=== PATIENT | male | born 2000 | race Caucasian/White ===

== ENCOUNTER 2024-06-19 20:11 | Emergency (ER) | payer SELFPAY | END 2024-06-19 20:50 | disposition home or self-care (01) | LOC: MW.ED 20:11 | DX: R11.11 Vomiting without nausea (principal); F17.210 Nicotine dependence, cigarettes, uncomplicated; Z79.2 Long term (current) use of antibiotics | CPT/HCPCS: 99283 ==

== ENCOUNTER 2024-08-02 20:24 | Emergency (ER) | payer SELFPAY ==
[2024-08-02] MEDS: diphenhydrAMINE 50 MG Cap PO ONE (20:55)
[2024-08-02] MEDS: predniSONE 10 MG Tab PO ONE (20:56)
== END 2024-08-02 21:03 | disposition home or self-care (01) ==
LOC: MW.ED 20:24
DX: L30.9 Dermatitis, unspecified (principal); Z75.8 Other problems related to medical facilities and other health care; Z79.899 Other long term (current) drug therapy
CPT/HCPCS: 99282; A9270

== ENCOUNTER 2024-08-14 13:54 | Emergency (ER) | payer SELFPAY ==
[2024-08-14] MEDS: Fluconazole 150 MG Tab PO ONE (14:27)
== END 2024-08-14 14:50 | disposition home or self-care (01) ==
LOC: MW.ED 13:54
DX: B35.0 Tinea barbae and tinea capitis (principal); B35.4 Tinea corporis; Z75.8 Other problems related to medical facilities and other health care
CPT/HCPCS: 99282; A9270